=== PATIENT | male | born 1995 | race Caucasian/White ===

== ENCOUNTER 2023-01-28 11:31 | Outpatient (REF) | payer OTHER, SELFPAY ==
--- NOTE | ~2023-01-28 | XR_ITS ---
EXAMINATION: 1. Left foot. 2. Left ankle. CLINICAL INFORMATION: Foot drop. COMPARISON: None. TECHNIQUE: 1. Left foot. 3 views 2. Left ankle. 3 views FINDINGS: 1. Left foot. No fracture. No dislocation. Joint spaces are normal. No soft tissue abnormality. 2. Left ankle. No fracture. No dislocation. Ankle mortise is congruent. XR/XR ankle LT 2V IMPRESSION: 1. Left foot. Normal. 2. Left ankle. Normal.
--- NOTE | ~2023-01-28 | XR_ITS ---
EXAMINATION: 1. Left foot. 2. Left ankle. CLINICAL INFORMATION: Foot drop. COMPARISON: None. TECHNIQUE: 1. Left foot. 3 views 2. Left ankle. 3 views FINDINGS: 1. Left foot. No fracture. No dislocation. Joint spaces are normal. No soft tissue abnormality. 2. Left ankle. No fracture. No dislocation. Ankle mortise is congruent. XR/XR foot LT min 3V IMPRESSION: 1. Left foot. Normal. 2. Left ankle. Normal.
== END 2023-01-28 11:32 | disposition home or self-care (01) ==
LOC: HO.XRAY 11:31
PROVIDERS: PCP Internal Medicine; Visit Provider Internal Medicine
DX: M25.572 Pain in left ankle and joints of left foot (principal); M79.672 Pain in left foot
CPT/HCPCS: 73600; 73630

== ENCOUNTER 2023-03-09 12:16 | Outpatient (AMB) | payer OTHER, SELFPAY ==
--- NOTE | 2023-03-09 12:21 | MHC.OFFVIS ---
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 Pain strated about 1.5 months ago. No injury he can recall. Reports he was having dinner with his family and the next day he felt pain in foot. States his pain initially was on top of his foot but has subsided. Seen with his PCP who ordered xrays and ref to Orthopedic. 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 He was seen by his PCP where x-rays were performed and he was referred to our office. He states he had pain on the anterior aspect of his foot but has now subsided. He has not had any injury in the past. 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 Review of Systems Const All systems reviewed & are unremarkable except as noted in HPI and below Physical Exam Vital Signs: BMI result Body Mass Index 36.5 Const General: cooperative, healthy appearing, comfortable, no acute distress, well developed and alert Orientation/consciousness: patient oriented x3 HEENT Head: Yes normal to inspection, Yes normocephalic and Yes atraumatic Eyes General: appearance normal, both eyes and all related structures Resp Effort & Inspection: normal respiratory effort and able to speak in complete sentences Cardio Rate: regular rate Peripheral pulses: Peripheral pulses 2+ throughout GI Palpation (GI): Soft to palpation Skin Lesions: no lesions Rashes: no rashes Neuro General: patient oriented x3 Extrem Other: Left foot: Normal to inspection. It is positioned chronically with plantar flexion. There is no tenderness throughout the foot. NVI. Results Reviewed Results Reviewed: prior xays of the left ankle and foot negative for acute fracture or dislocation Assessment & Plan Assessment & Plan (1) Left foot pain: Code(s): M79.672 - Pain in left foot Plan Since he is asymptomatic and has no limitations with activities, he will continue with normal activity as tolerated. If any symptoms arise or he has any other concerns, he will contact the office otherwise follow-up as needed. Patient Instructions: Scribed for Dov Caballero PA-C, by Skyler Lagos medical science liaison, on 03/09/2023 at 12:30 PM YE. Dov Bryant PA-C, have personally reviewed and agree with the information entered by the scribe. Coding Level of Care Code New Pt Level 3 (99670) Diagnoses Left foot pain M79.672
[2023-03-09 12:22] VITALS: BMI 36.5
== END 2023-03-09 12:48 | disposition home or self-care (01) ==
PROVIDERS: PCP Internal Medicine; Visit Provider Physician Assistant
DX: M79.672 Pain in left foot (principal)
CPT/HCPCS: 99203

== ENCOUNTER → 2023-03-09 12:16 | Outpatient (BNVA) | payer OTHER, SELFPAY | PROVIDERS: PCP Internal Medicine; Visit Provider Physician Assistant | DX: M79.672 Pain in left foot (principal) | CPT/HCPCS: 99202 ==

== ENCOUNTER 2023-05-20 07:56 | Outpatient (REF) | payer OTHER, SELFPAY ==
[2023-05-20 09:53] LABS: Erythrocyte Sedimentation Rate 2 MM/HR (0-15)
[2023-05-20 10:21] LABS: Anion Gap 12 (12-20); Blood Urea Nitrogen 10 mg/dL (9-16); Calcium 9.4 mg/dL (8.4-10.2); Carbon Dioxide 27 mmol/L (22-29); Chloride 107 mmol/L (96-108); Estimated Glomerular Filt Rate > 60; Glucose Fasting 103 mg/dL (60-99); Potassium 4.2 mmol/L (3.3-5.1); Sodium 142 mmol/L (135-145)
[2023-05-27 13:19] LABS: Aldolase 6.2 U/L (<=8.1)
== END 2023-05-20 07:57 | disposition home or self-care (01) ==
LOC: HO.LAB 07:56
PROVIDERS: PCP Internal Medicine; Visit Provider Psychiatry & Neurology Neurology
DX: G60.9 Hereditary and idiopathic neuropathy, unspecified (principal)
CPT/HCPCS: 36415; 80048; 82085; 82550; 85652

== ENCOUNTER 2023-09-23 10:00 | Outpatient (RCR) | payer OTHER, SELFPAY ==
--- NOTE | 2023-06-29 11:57 | MHC.PT.EP ---
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 Skilled PT indicated to make recommendations for new equipment including new AFO's or being assessed for KAFOs to compensate for lower limb weakness, teach HEP to address ROM issues at ankles, prescribe exercises to target innervated muscles including core and hip to maximize functional mobility and decrease risk for falls. Frequency and Duration: The patient will be seen 2x/week, x 4 weeks Short Term Goals: 1. In 2 weeks patient will be I with ankle DF stretch using a strap with improvement of ROM to 5 degrees past neutral. 2. In 2 weeks, patient will complete HEP with > 75% compliance and improve TAC and hip extension strength to 4-/5. 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 In 4 weeks, improve B hip extension and HS strength to 4/5. 2. In 4 weeks, improve DF to 10 degrees past neutral to improve his ability to complete sit<>stand transfers. 3. Improve LEFS >= 9 points indicating improved functional mobility. Treatment Plan: Modalities to reduce pain, spasms and effusion. Manual therapy to restore motion and function. Therapeutic exercise to improve strength and flexibility. Neuromuscular re-education for posture and balance. Therapeutic activities to return to functional activities of daily living. Electronically signed by: Melina Jones, PT, DPT Please sign and return to therapist. Thank you for your referral.
== END 2024-01-18 13:27 | disposition home or self-care (01) ==
LOC: HO.PT 10:00
PROVIDERS: PCP Internal Medicine; Visit Provider Psychiatry & Neurology Neurology
DX: G60.0 Hereditary motor and sensory neuropathy (principal)
CPT/HCPCS: 97110; 97140; 97163; 97530